=== PATIENT | male | born 1960 | race Caucasian/White ===

== ENCOUNTER 2019-05-10 07:49 | Inpatient (IN) ==
[2019-05-10] MEDS ORDERED: NS 1,000 ML ONE (07:57)
[2019-05-10] MEDS ORDERED: NS 1,000 ML IV ONE ×4 (08:00→11:03)
--- NOTE | 2019-05-10 08:08 | PROVIDER DOCUMENTATION ---
HPI-General Adult - General Chief Complaint: Unresponsive Stated Complaint: UNRESPONSIVE Time Seen by Provider: 05/10/19 08:00 Allergies/Adverse Reactions: Patient Allergies Allergy/AdvReac Type Severity Reaction Status Date / Time No Known Allergies Allergy Unverified 07/16/18 09:12 Home Medications: Home Medication List Medication Instructions Recorded Confirmed Last Taken Type Levothyroxine [Synthroid] 100 microgm PO DAILY@0700 09/25/15 05/10/19 05/09/19 History SIMVAstatin [Zocor] 10 mg PO QHS 09/25/15 05/10/19 05/09/19 History Cetirizine [Zyrtec] 10 mg PO DAILY 04/29/18 05/10/19 05/09/19 History Trazodone [Desyrel] 25 mg PO QHS 04/29/18 05/10/19 05/09/19 History Ergocalciferol (Vitamin D2) 50,000 units PO DIRECTED 05/27/18 05/10/19 05/09/19 History [Vitamin D2] - History of Present Illness -Gen Adult Nature of Presenting Problems: 58 y/o down syndrome patient found unresponsive at residential, patient appeared emaciated, lethargic and responsive to pain and tactile stimuli only, patient had low blood pressure and shallow breathing . Pain Radiation: reports: no radiation Quality of Pain: reports: none Severity: reports: moderate Timing: reports: still present Context/Activities at Onset: reports: none Modifying Factors: improves with: nothing Associated Symptoms: reports: fatigue, weakness Similar Symptoms Previously?: No Recently seen or treated by another doctor?: No Review of Systems - Adult - REVIEW OF SYSTEMS - ADULT Constitutional: denies: fever, fatique Eyes: reports: no symptoms reported Ears, Nose, Mouth & Throat: reports: no symptoms reported Cardiovascular: reports: palpitations, syncope Respiratory: reports: see HPI Gastrointestinal: reports: no symptoms reported Genitourinary: reports: no symptoms reported Musculoskeletal: reports: no symptoms reported Integumentary: reports: other (redness in sacral area) Psychiatric: reports: no symptoms reported Past History - Adult - PAST MEDICAL HISTORY-ADULT Review of Records: reports: Nursing Assessment Review Major Childhood Illnesses: reports: other (down syndrome) Cardiovascular: reports: denies history Respiratory: reports: denies history Gastrointestinal: reports: denies history Obstetrical/Gynecological: reports: denies history Genitourinary: reports: denies history Musculoskeletal: reports: denies history Neurological: reports: denies history Endocrine/Immune: reports: denies history Other Conditions: reports: denies history - PRIOR SURGERIES/PROCEDURES Surgical/Procedure History: reports: none - IMMUNIZATION STATUS Childhood Immunizations: See Nurse Assessment Flu Vaccine: See Nurse Assessment - FAMILY HISTORY Family History: reviewed, not pertinent Physical Exam-General - PHYSICAL EXAM-ADULT Initial Vital Signs Reviewed: Yes - CONSTITUTIONAL General Appearance: cachetic, thin, lethargic, slow to respond - HEAD, EARS, NOSE, MOUTH & THROAT HENMT: normocephalic/atraumatic - NECK Neck: other (stiff neck) - RESPIRATORY Respiratory: lungs clear, normal breath sounds - CARDIOVASCULAR Cardiovascular: no edema, no gallop, no JVD - GASTROINTESTINAL (ABDOMEN) Abdominal Exam: soft. negative: distended - MUSCULOSKELETAL Back Exam: no CVA tenderness, no vertebral tenderness Extremity: negative: no calf tenderness, inflammation, pedal edema - SKIN Integumentary: negative: cyanosis, ecchymosis, embolic lesions, swelling - NEUROLOGIC Neurologic: other (unable to fully assess due to decreased mental status) Progress - PLAN OF CARE/RESULTS Progress/Plan/Lab Results: Vital Signs - 8 hr 05/10/19 07:55 Temperature 99.3 F Pulse Rate 105 H Respiratory Rate 20 Blood Pressure 80/57 O2 Sat by Pulse Oximetry 94 L Orders Category Date Time Status Cardiac Monitoring DIRECTED Care 05/10/19 08:00 Active IV Insertion ORDERED Care 05/10/19 08:00 Active Notify MD of + Sepsis Screen NOW Care 05/10/19 08:00 Active Notify Physician As Ordered Care 05/10/19 08:00 Active CHEST-1 VIEW [RAD] Stat Exams 05/10/19 08:00 Ordered ABG [RESP] Stat Lab 05/10/19 08:02 Ordered BLOOD CULTURE [BLDCUL] Stat Lab 05/10/19 08:00 Uncollected CBC WITH DIFF [HEME] Stat Lab 05/10/19 08:00 Uncollected CK PROFILE [SP CHEM] Stat Lab 05/10/19 08:00 Uncollected COMPREHENSIVE METABOLIC PANEL [CHEM] Stat Lab 05/10/19 08:00 Uncollected LACTATE, PLASMA [CHEM] Lab 05/10/19 08:00 Uncollected LACTATE, PLASMA [CHEM] Lab 05/10/19 11:00 Uncollected LACTATE, PLASMA [CHEM] Lab 05/10/19 14:00 Uncollected PROTIME WITH INR [COAG] Stat Lab 05/10/19 08:00 Uncollected PTT [COAG] Stat Lab 05/10/19 08:00 Uncollected TROPONIN T Stat Lab 05/10/19 08:[address] W/POSS RFLX CULT [URINALYSIS] Stat Lab 05/10/19 08:00 Ordered 0.9% Sodium Chloride Inj [Ns] 1,000 ml Med 05/10/19 08:00 Active IV 999 mls/hr Oxygen Device Stat Oth 05/10/19 08:00 Active Result Diagrams: 05/10/19 08:05 05/10/19 08:05 - REASSESSMENT Reassessment #1 Time Reassessed: 11:05 Status: worsening (family did not want intubation or CPR, brother claimed that he had power of attoney) Departure - Departure Referrals and Follow-Ups: Vaishnavi Quarles CRNP [Primary Care Provider] -
[2019-05-10 08:23] LABS: BASO# 0.02 X1000 (0.0-0.2); BASO% 0.1 % (0.0-0.8); HEMATOCRIT 54.2 % (42.0-52.0); IMM GRAN# 0.06 X1000 (0.0-0.04); IMM GRAN% 0.3 % (0.0-0.5); LYMPH# 0.58 X1000 (1.2-3.4); LYMPH% 3.2 % (20.5-51.1); MCH 30.9 PG (27-31); MCHC 31.4 g/dL (33-37); MCV 98.4 FL (81-99); MONO# 0.64 X1000 (0.11-0.59); MONO% 3.5 % (1.7-9.3); NEUT# 16.92 X1000 (1.4-6.5); NEUT% 92.9 % (42.2-75.2); PLT 104 X1000 (130-400); RBC 5.51 XMIL (4.7-6.1); RDW 18.5 % (11.5-14.5); WBC 18.22 X1000 (4.8-10.8)
[2019-05-10 08:24] LABS: BLOOD TYPE ARTERIAL; HCO3-(ACT) 23.9 mmoll (20.0-26.0); METHB 1.2 % (0.0-1.5); O2HB 90.9 % (95.0-99.0); PCO2(98.6) 33 mmHg (35-45); PO2(98.6) 60 mmHg (60-100); SAMPLE BLOOD; SAO2 94.1 % (95.0-100.0); THB 14.9 g/dL (11.5-17.4); pH(98.6) 7.44 (7.35-7.45)
[2019-05-10 08:25] LABS: MODALITY VENTIMASK
[2019-05-10 08:26] LABS: ALLEN TEST NO
[2019-05-10 08:32] LABS: LYMPHS 4 % (21-51); MONO 1 % (1-9); SEGS 95 % (42-75)
[2019-05-10 08:48] LABS: INR 1.15; PROTIME 15.3 Seconds (11.0-16.0)
[2019-05-10 08:49] LABS: ALBUMIN 3.1 g/dL (3.5-5.0); CALCIUM 8.8 mg/dL (8.8-10.2); CREATININE 1.8 mg/dL (0.7-1.2); POTASSIUM 4.2 mmol/L (3.5-5.1); TOTAL BILIRUBIN 0.5 mg/dL (0.20-1.00); TOTAL PROTEIN 7.6 g/dL (6.3-8.3)
[2019-05-10] MEDS ORDERED: ROCEPHIN IV ONE (08:49)
[2019-05-10] MEDS ORDERED: 1/2 NS 1,000 ML IV ONE (08:53)
[2019-05-10 09:09] LABS: CK INDEX 1.9 (0.0-2.5); CK-MB 9.41 ng/mL (0.0-5.0)
[2019-05-10] MEDS ORDERED: NS 50 ML ONE (09:17)
[2019-05-10] MEDS ORDERED: MORPHINE IV PRN (09:20)
[2019-05-10] MEDS ORDERED: ZOFRAN IV PRN (09:20)
[2019-05-10] MEDS ORDERED: D5W 1,000 ML IV ONE (09:20)
[2019-05-10 09:27] LABS: BILIRUBIN URINE 1+ (NEGATIVE); BLOOD URINE 4+ (NEGATIVE); CLARITY CLEAR (CLEAR); COLOR YELLOW; GLUCOSE URINE NEGATIVE (NEGATIVE); KETONE URINE TRACE mg/dL (NEGATIVE); LEUKOCYTES URINE TRACE (NEGATIVE); NITRITE URINE NEGATIVE (NEGATIVE); PH URINE 6.5; PROTEIN URINE 1+(30 mg/dL) mg/dL (NEGATIVE); SP GRAVITY URINE 1.025; UROBILINOGEN URINE 1 mg/dL
[2019-05-10] MEDS ORDERED: ROCEPHIN ONE (09:27)
--- NOTE | 2019-05-10 09:28 | Diag Imaging Result Doc PS360 ---
EXAM: CHEST-1 VIEW - 05/10/2019 HISTORY: sepsis TECHNIQUE: Portable chest COMPARISON: 02/08/2019 FINDINGS: Heart size is normal. Inspiration is mildly shallow. There are stable granuloma from old granulomatous disease at the lateral right base. There is mild perihilar infiltrates or atelectasis. There is no dense consolidation, pleural effusion, or pneumothorax identified. IMPRESSION: Mildly shallow inspiration. Mild perihilar infiltrates or atelectasis. No dense consolidation. Electronically signed by Wally Mena 05/10/2019 9:26 AM
[2019-05-10 09:31] LABS: URINE CAST GRANULAR PRESENT /LPF; URINE EPITHELIAL CELLS <10 /HPF (<10); URINE RBC TNTC /HPF (<10); URINE SOURCE CATH; URINE WBC <10 /HPF (<10)
--- NOTE | 2019-05-10 11:06 | ED EKG INTERP ---
This chart was entered by Hina Villalobos Scribe, acting as scribe for Rosita Diaz MD. EKG Interpretation - EKG Time of EKG reading by physician:: 08:28 EKG Read and Signed by:: Rosita Diaz EKG Interpretation (*Must complete 3 of following elements*): Abnormal (left anterior fascicular block, bifascicular block septal infarct, age undetermined) Rate: 93 Rhythm: normal sinus QRS: RBB, LVH (with repolorazation abnormality) ST Wave: normal Attestation - Physician/ ALBA Attestation Patient care was provided by Advanced Practice Provider:: No The physician spent face to face time with patient:: Yes Advanced Practice Provider documentation review:: Supervising physician onsite and consulted in the evaluation and care of this patient. The physician did have a face to face encounter with the patient. This chart was documented by the indicated scribe, (Hina Villalobos Scribe) and accurately reflects the services I performed and decisions made by va, Rosita Diaz MD, as attested by the provider's signature.
--- NOTE | 2019-05-10 11:43 | EKG Report ---
Test Performed on : 05/10/2019 08:28:41 AM Test Reason : ams Blood Pressure : / mmHG Vent. Rate : 093 BPM Atrial Rate : 093 BPM P-R Int : 146 ms QRS Dur : 120 ms QT Int : 392 ms P-R-T Axes : 058 -82 090 degrees QTc Int : 487 ms Normal sinus rhythm. Right bundle branch block Left anterior fascicular block Bifascicular block Left ventricular hypertrophy with repolarization abnormality Septal infarct , age undetermined Abnormal ECG No previous ECGs available Unconfirmed Result
[2019-05-10] MEDS ORDERED: LEVOPHED 8 MG in D5 1/2 NS 250 ML IV SCH ×2 (12:00→12:30)
[2019-05-10] MEDS ORDERED: ATIVAN IV PRN (12:23)
[2019-05-10] MEDS ORDERED: TRANSDERM-SCOP TD SCH (12:30)
[2019-05-10] MEDS ORDERED: MERREM 1 GM in NS 50 ML IV SCH (12:30)
--- NOTE | 2019-05-10 12:59 | HISTORY AND PHYSICAL ---
CHIEF COMPLAINT: Unresponsive. HISTORY OF PRESENT ILLNESS: The patient is not able to provide any information because he is lethargic. All information has been obtained is from the ER physician and from family who is at bedside. Apparently, this is a 58-year-old male with history of Down's syndrome who lives in a snf. Apparently, he was found unresponsive down there so patient was brought to the emergency department. According to the caregiver who happens to be on the room at the time of my examination reports that he was not eating okay for several weeks along with apparently some difficulty chewing food. He was not having any cough or fever. He has been lethargic and unresponsive to pain only. Also, he was found to have a low blood pressure and shallow breathing. He is not like this when he is in his snf. Those findings are new for him. PAST MEDICAL HISTORY: 1. Diabetes mellitus type 2. 2. Hypothyroidism. 3. Mental retardation. 4. Hyperlipidemia. PAST SURGICAL HISTORY: Laparoscopic cholecystectomy. SOCIAL HISTORY: The patient lives in a snf. Patient has Alzheimer's dementia. According to previous record, no alcohol, tobacco or illicit drug use. ALLERGIES: Patient is not allergic to anything. REVIEW OF SYSTEMS: Unable to obtain from the patient. PHYSICAL EXAMINATION: Temperature 99.6 degrees, heart rate 105, respiratory rate 20, blood pressure 80/57, and O2 saturation 94% on 6 L nasal cannula GENERAL: This is a chronically ill appearing and extremely very malnourished. 58-year-old, male lying in bed in mild respiratory distress. HEENT: Head is normocephalic, atraumatic. Mucous membranes very dry. NECK: No JVD noted. No carotid bruits. CARDIOVASCULAR: S1, S2 heard. Tachycardic. No murmurs, gallops, or rubs noted. RESPIRATORY: Coarse breath sounds all over both pulmonary bases. Patient is breathing shallowly. ABDOMEN: Very depressed. Soft. Apparently nontender to palpation. Bowel sounds present. No organomegaly. EXTREMITIES: Patient has both lower extremities internally flexed. Peripheral pulses are present but faint. NEUROLOGICAL: The patient is completely lethargic, and responds to verbal stimuli only. He does move 4 extremities spontaneously. He has nonverbal course. LABORATORY DATA: White cell count 18.22, hemoglobin 17, hematocrit 54.2 and platelets 104,000. The ABG shows pH 7.44 with pCO2 of 33, and p02 60 with sodium 172 and creatinine 1.8. DIAGNOSTIC: Chest x-ray showed mildly shallow inspiration with mild perihilar infiltrate. No dense consolidation. ASSESSMENT/PLAN: 1. Acute hypoxemic respiratory failure. 2. Possible aspiration pneumonia. 3. Septic shock secondary to pneumonia. 4. Severe malnourishment. 5. Diabetes mellitus type 2. 6. Down syndrome. 7. Hyperlipidemia. 8. Diabetes mellitus type 2. 9. The patient was basically brought to the emergency department because he was unresponsive. He looks really in bad shape, and breathing really shallowly. Blood pressure continues to drop so in the ER he needed to have not only IV fluids but also we need to start Levophed drip to keep blood pressure up. Patient's prognosis is very poor because I do not know for sure the reason why this patient is septic. I prefer to go ahead and do a CT of abdomen and pelvis and thorax to see if there is any abnormality or something we can treat. We will continue with IV fluids. We will continue with broad-spectrum antibiotics. In this case, it is Zyvox and meropenem. We did not document any fever. We will continue to monitor. His prognosis is very poor. Also, he was found to be very dehydrated with sodium of 172 so we are starting D5W at 150 mL per hour. We are going to check every 4 hours the sodium, and see how he does. 10. Diabetes mellitus type 2. We will continue checking Accu-Chek's. 11. Hypothyroidism aware. We will continue home medications. 12. Down's syndrome aware. 13. Disposition: The patient is going to ICU. Family has made him DNR. They are thinking also about withdrawal of care comfort care measures only. They are not completely sure so I recommend to them to think about it, and we will talk to them tomorrow about goals of care. We are going to also consult Lydia Riley for palliative care to see what else we can do for this patient. Addendum: After my evaluation family has decided to do withdrawal of care and place him on comfort care measures only. Will transfer to a regular room. cc: Ant Oseguera MD MTDAngela
[2019-05-10] MEDS ORDERED: ZYVOX 600 MG/D5W 600 MG/300 ML IVPB IV SCH (13:00)
[2019-05-10] MEDS: MORPHINE IV PRN (18:46)
[2019-05-10] MEDS ORDERED: DESYREL PO SCH (21:00)
[2019-05-11] MEDS ORDERED: SYNTHROID PO SCH (07:00)
--- NOTE | 2019-05-11 20:16 | PROGRESS NOTE ---
DATE: 05/11/2019 SUBJECTIVE: The patient himself is unresponsive. OBJECTIVE: Vital Signs: Temperature 94 degrees, pulse regular, respiratory 26, BP 51/34. General: Patient is moderately ill-appearing albeit very calm and sedated 58-year-old, who currently is comfort care only. HEENT: Normocephalic. Neck: Supple. Cardiovascular: Regular rate. Chest: Decreased greatly breath sounds bilaterally. No wheezing. Abdomen: Soft, nondistended. ASSESSMENT: 1. Comfort care only. 2. Hypotension. 3. Hypoxic respiratory failure. 4. Do Not Resuscitate. 5. Down syndrome. 6. Hypothyroidism. 7. Severe hypernatremia. 8. Acute renal failure. 9. Volume depletion. 10. Leukocytosis. PLAN: We will continue patient in the hospital. Continue comfort care measures. Continue to follow. Further orders as needed. cc: Dave Cortes MD
[2019-05-11] MEDS: MORPHINE IV PRN (21:07)
[2019-05-12] MEDS: MORPHINE IV PRN ×2 (08:54→13:35)
--- NOTE | 2019-05-13 05:15 | PROGRESS NOTE ---
DATE: 05/12/2019 SUBJECTIVE: Patient currently is nonverbal. He is obtunded. PHYSICAL EXAMINATION: Vital Signs: Temperature 97 degrees, pulse 97, respiratory 18, BP 62/39. General: Patient is in no current distress. He is on oxygen but he has nonlabored breathing although very shallow breathing. He is calm. HEENT: Normocephalic. Neck: Supple. Cardiovascular: Regular rate. Chest: Greatly decreased breath sounds bilaterally. No wheezing. No crackles. Abdomen: Soft. Extremities: No edema. Neurologic: Unable to assess. ASSESSMENT: 1. Do Not Resuscitate. 2. Comfort care only. 3. Acute hypoxic respiratory failure. 4. Hypernatremia. 5. Leukocytosis. 6. Acute renal failure. 7. Down syndrome. 8. Diabetes. 9. Hyperlipidemia. PLAN: We will continue patient in the hospital. Continue comfort measures. I do not expect patient to survive this event. cc: Dave Cortes MD
[2019-05-13] MEDS: MORPHINE IV PRN (05:30)
[2019-05-13 08:17] VITALS: BP 47/24
--- NOTE | 2019-05-14 04:03 | DISCHARGE SUMMARY ---
ADMISSION DATE: 05/10/2019 DISCHARGE DATE: 05/13/2019 Patient is DNR. He passed around noon today. No other complications were noted. The family is aware and all questions have been answered. cc: Dave Cortes MD
--- NOTE | 2019-05-14 14:19 | DISCHARGE SUMMARY ---
ADMISSION DATE: 05/10/2019 DISCHARGE DATE: 05/13/2019 PATIENT : 05/13/2019 at 12:38 p.m. CONSULTATIONS: None. PERTINENT PROCEDURES: Chest x-ray: Mildly shallow inspiration, mild highly mild perihilar infiltrates or atelectasis. No dense consolidation. EKG normal sinus rhythm, right bundle branch block. Left anterior fascicular block, LVH. DISCHARGE DIAGNOSES: 1. Do not resuscitate. 2. Comfort measures only. 3. Acute hypoxemic respiratory failure. 4. Hypernatremia. 5. Leukocytosis. 6. Acute renal failure. 7. Down syndrome. 8. Diabetes mellitus. 9. Hyperlipidemia. 10. Mental retardation. 11. Possible aspiration pneumonia. 12. Septic shock secondary to pneumonia. 13. Severe malnutrition. HOSPITAL COURSE: Briefly, Mr. Grider is a 58-year-old gentleman who carries a past medical history of Down syndrome, type 2 diabetes, hypothyroidism, hyperlipidemia, who was brought into the ED with family at bedside who lives in a retirement. He was found unresponsive there, brought to the ED. According to the caregiver, the patient had not been eating okay for the last several weeks and had some difficulty chewing food. There was no report of cough or fever. They also reported lethargy. In the ER he was found to have a low blood pressure and shallow breathing. Further workup revealed septic shock secondary to pneumonia and acute hypoxemic respiratory failure. He was initiated on IV fluids, broad-spectrum antibiotics and initially moved to the ICU. His family made him a DNR. He briefly required pressors. The family talked it over and they continued his DNR status, but made him comfort care measures only. Unfortunately, Mr. Grider succumbed to his illness on 05/13/2019 at 12:38 p.m. Dictated by CHRISTY Still for Dave Cortes MD cc: MD Vaishnavi Maria CRNP
== END 2019-05-13 12:38 | disposition expired | DRG 871 ==
LOC: SUPCPDRO → P.ED 07:49 → P.EDIPHOLD 09:22 → SUATTDRO 09:22 → P.MEDSURG 13:58
PROVIDERS: ATTEND Family Medicine
CPT/HCPCS: 71010; 71045; 80053; 81001; 82550; 82553; 82805; 82948; 83605; 84443; 84484; 85025; 85610; 85730; 87040; 93005; 94761; A9270; J0696; J2270; J7030; J7070; XXXXX